=== PATIENT | female | born 1985 | race African-American/Black ===

== ENCOUNTER 2017-11-08 15:35 | Emergency (ER) | payer OTHER ==
[~2017-11-08] VITALS: Ht 177.8 cm; Wt 100.0 kg
[2017-11-08 15:40] VITALS: BP 148/87; PULSE 106; RESP 16; TEMP 98.1; O2SAT 99
[2017-11-08] MEDS ORDERED: LISI10TA3 PO (18:35)
[2017-11-08] MEDS ORDERED: TRAM50TA PO (18:35)
[2017-11-08] MEDS ORDERED: LANTUS2P SQ (18:35)
[2017-11-08] MEDS ORDERED: GLYB5TAB3 PO (18:35)
[2017-11-08] MEDS ORDERED: NAPR250T4 PO (18:35)
--- NOTE | 2017-11-08 18:42 | PD ---
HPI Chief Complaint: Sonar Technician Problem/Complaint Time Seen by Provider: 17:45 Travel History International Travel<30 days: No Contact w/Intl Traveler<30days: No Traveled to known affect area: No History of Present Illness HPI 32-year-old female presents to the emergency department with complaint of vaginal bleeding that started 13 days ago. At first she started out going through 4-5 pads a day and now she only has blood on the tissue when she wipes. Is complaining of right lower quadrant abdominal pain, but does not have pain at this time. Her last menstrual period started October 11 and ended October 15. She has never had symptoms like this in the past. Reports history of tubal ligation and denies . Denies nausea, vomiting, fever. Denies abnormal vaginal discharge, other than the bleeding, vaginal odor. Denies dysuria. Denies chest pain, shortness of breath. Denies lightheadedness, dizziness. Said that she did have an episode of dizziness yesterday when she stood up from a squatting position. She has not taken any medications or trying treatments to alleviate her symptoms. No known aggravating or relieving factors. Symptoms are mild to moderate in severity. Primary CARE providers in [place]. Allergies to doxycycline. History of IDDM. Denies history of abdominal surgeries, other than 3 sections. has no other medical complaints. No other modifying factors or associated signs and symptoms. PFSH Past Medical History Diabetes: Yes Patient Takes Glucophage: No Diminished Hearing: No Tetanus Vaccination: > 5 Years Influenza Vaccination: No ?: Not LMP: 10/11/17 : 3 Para: 3 Miscarriage: 0 : 0 Tubal Ligation: Yes Past Surgical History Section: Yes (X3) Social History Alcohol Use: No Tobacco Use: No Substance Use: No Allergies-Medications (Allergen,Severity, Reaction): Coded Allergies: doxycycline (Verified Allergy, Severe, Anaphylaxis, 11/08/17) Reported Meds & Prescriptions Reported Meds & Active Scripts Active Flagyl (Metronidazole) 500 Mg Tab 500 Mg PO BID 7 Days Reported Naproxen 250 Mg Tab 250 Mg PO BID Lantus Inj (Insulin Glargine) 1,000 Unit/10 Ml Vial 50 Units SQ DAILY Glyburide 5 Mg Tab 5 Mg PO DAILY Take with meals at the same time each day Lisinopril 10 Mg Tab 10 Mg PO DAILY Tramadol (Tramadol HCl) 50 Mg Tab 50 Mg PO Q6H PRN Review of Systems Except as stated in HPI: all other systems reviewed are Neg Physical Exam Narrative GENERAL: Well-nourished, well-developed black female patient, in no acute distress; afebrile SKIN: Warm and dry. HEAD: Atraumatic. Normocephalic. EYES: Pupils equal and round. No scleral icterus. No injection or drainage. ENT: Mucosa pink and moist. Airway patent. NECK: Trachea midline. CARDIOVASCULAR: Regular rate and rhythm. No murmur appreciated. RESPIRATORY: No accessory muscle use. Clear to auscultation. Breath sounds equal bilaterally. GASTROINTESTINAL: Abdomen soft, tenderness on palpation to right lower, nondistended. Hepatic and splenic margins not palpable. Bowel sounds are active 4 quadrants. Nonrigid. No guarding. BACK: No CVA tenderness. MUSCULOSKELETAL: No obvious deformities. No clubbing. No cyanosis. No edema. NEUROLOGICAL: Awake and alert. Oriented 3. No obvious cranial nerve deficits. Motor grossly within normal limits. Normal speech. PSYCHIATRIC: Appropriate mood and affect; insight and judgment normal. Data Data Last Documented VS Vital Signs Date Time Temp Pulse Resp B/P (MAP) Pulse Ox O2 Delivery O2 Flow Rate FiO2 11/08/17 15:40 98.1 106 16 148/87 (107) 99 Orders Orders Complete Blood Count With Diff (11/08/17 17:46) Prothrombin Time / Inr (Pt) (11/08/17 17:46) Act Partial Throm Time (Ptt) (11/08/17 17:46) Urinalysis - C+S If Indicated (11/08/17 17:46) Ed Urine Pregnancytest Poc (11/08/17 17:46) Comprehensive Metabolic Panel (11/08/17 18:19) Lipase (11/08/17 18:19) Gc And Chlamydia Pcr (11/08/17 18:57) Wet Prep Profile (11/08/17 18:57) Ed Discharge Order (11/08/17 20:17) Labs Laboratory Tests Test 11/08/17 18:20 11/08/17 19:30 White Blood Count 10.2 TH/MM3 Red Blood Count 4.82 MIL/MM3 Hemoglobin 14.1 GM/DL Hematocrit 41.8 % Mean Corpuscular Volume 86.8 FL Mean Corpuscular Hemoglobin 29.2 PG Mean Corpuscular Hemoglobin Concent 33.7 % Red Cell Distribution Width 13.7 % Platelet Count 260 TH/MM3 Mean Platelet Volume 10.3 FL Neutrophils (%) (Auto) 51.1 % Lymphocytes (%) (Auto) 36.0 % Monocytes (%) (Auto) 8.8 % Eosinophils (%) (Auto) 3.7 % Basophils (%) (Auto) 0.4 % Neutrophils # (Auto) 5.2 TH/MM3 Lymphocytes # (Auto) 3.7 TH/MM3 Monocytes # (Auto) 0.9 TH/MM3 Eosinophils # (Auto) 0.4 TH/MM3 Basophils # (Auto) 0.0 TH/MM3 CBC Comment DIFF FINAL Differential Comment Prothrombin Time 10.0 SEC Prothromb Time International Ratio 1.0 RATIO Activated Partial Thromboplast Time 27.5 SEC Urine Color YELLOW Urine Turbidity HAZY Urine pH 5.0 Urine Specific [place] 1.028 Urine Protein 30 mg/dL Urine Glucose (UA) 150 mg/dL Urine Ketones 20 mg/dL Urine Occult Blood LARGE Urine Nitrite NEG Urine Bilirubin NEG Urine Urobilinogen 2.0 mg/dL Urine Leukocyte Esterase NEG Urine RBC LESS THAN 1 /hpf Urine WBC 2 /hpf Urine Squamous Epithelial Cells 7 /hpf Urine Bacteria RARE /hpf Urine Mucus FEW /lpf Microscopic Urinalysis Comment CULT NOT INDICATED Blood Urea Nitrogen 10 MG/DL Creatinine 0.76 MG/DL Random Glucose 238 MG/DL Total Protein 8.9 GM/DL Albumin 4.2 GM/DL Calcium Level 9.1 MG/DL Alkaline Phosphatase 65 U/L Aspartate Amino Transf (AST/SGOT) 10 U/L Alanine Aminotransferase (ALT/SGPT) 18 U/L Total Bilirubin 0.4 MG/DL Sodium Level 135 MEQ/L Potassium Level 3.4 MEQ/L Chloride Level 99 MEQ/L Carbon Dioxide Level 28.0 MEQ/L Anion Gap 8 MEQ/L Estimat Glomerular Filtration Rate 105 ML/MIN Lipase 133 U/L Clue Cells (Wet Prep) PRESENT Vaginal Trichomonas (Wet Prep) NONE SEEN Vaginal Yeast (Wet Prep) NONE SEEN Chlamydia trachomatis DNA (PCR) NOT DETECTED Neisseria gonorrhoeae DNA (PCR) NOT DETECTED MDM Medical Decision Making Medical Screen Exam Complete: Yes Emergency Medical Condition: Yes Medical Record Reviewed: Yes Differential Diagnosis Dysmenorrhea, menorrhagia, vaginal bleeding Narrative Course 32-year-old female with vaginal bleeding 13 days. Also complaining of right lower quadrant abdominal pain and denies pain at this time until palpated on exam. CBC, CMP, lipase, urinalysis, UPT ordered. 1857: I discussed the patient with Dr. Easley and continue plan of care discussed. Wet prep, chlamydia, gonorrhea ordered. 1899: Report given to Salvatore Gu PA-C at change of shift. See his note for final patient disposition. Scripts Metronidazole (Flagyl) 500 Mg Tab 500 MG PO BID for Infection for 7 Days, #14 TAB 0 Refills Prov: Bandar Easley MD 11/08/17 Eri Amador Nov 08, 2017 18:42
[2017-11-08 18:49] LABS: AUTOMATED NEUTROPHIL # 5.2 TH/MM3 (1.8-7.7); BASOPHIL % 0.4 % (0.0-2.0); EOSINOPHIL # 0.4 TH/MM3 (0-0.4); EOSINOPHIL % 3.7 % (0.0-4.0); HEMATOCRIT 41.8 % (35.0-46.0); HEMOGLOBIN 14.1 GM/DL (11.6-15.3); LYMPHOCYTE # 3.7 TH/MM3 (1.0-4.8); MEAN CELL VOLUME 86.8 FL (80.0-100.0); MEAN CORPUSCULAR HEMOGLOBIN 29.2 PG (27.0-34.0); MEAN CORPUSCULAR HGB CONC 33.7 % (32.0-36.0); MEAN PLATELET VOLUME 10.3 FL (7.0-11.0); MONO % 8.8 % (0.0-8.0); MONOCYTE # 0.9 TH/MM3 (0-0.9); NEUT % 51.1 % (16.0-70.0); PLATELET COUNT 260 TH/MM3 (150-450); RED BLOOD COUNT 4.82 MIL/MM3 (4.00-5.30); RED CELL DISTRIBUTION WIDTH 13.7 % (11.6-17.2); WHITE BLOOD COUNT 10.2 TH/MM3 (4.0-11.0)
[2017-11-08 19:12] LABS: BACTERIA, URINE RARE /hpf; BILIRUBIN, URINE NEG (NEG); BLOOD, URINE LARGE (NEG); GLUCOSE,URINE 150 mg/dL (NEG); KETONE, URINE 20 mg/dL (NEG); MUCUS URINE FEW /lpf (OCC); NITRITE,URINE NEG (NEG); SQUAMOUS EPITHELIAL CELL URINE 7 /hpf (0-5); URINE COLOR YELLOW (YELLW/STRAW); URINE LEUKOCYTE ESTERASE NEG (NEG)
[2017-11-08 19:13] LABS: ALBUMIN 4.2 GM/DL (3.4-5.0); ALT (GPT) 18 U/L (10-53); AST (GOT) 10 U/L (15-37); BLOOD UREA NITROGEN 10 MG/DL (7-18); CALCIUM 9.1 MG/DL (8.5-10.1); CHLORIDE 99 MEQ/L (98-107); CREATININE 0.76 MG/DL (0.50-1.00); GLOMERULAR FILTRATION RATE 105 ML/MIN (>89); GLUCOSE,RANDOM 238 MG/DL (74-106); SODIUM (NA) 135 MEQ/L (136-145)
[2017-11-08 19:14] LABS: ALKALINE PHOSPHATASE 65 U/L (45-117); TOTAL BILIRUBIN ADULT 0.4 MG/DL (0.2-1.0); TOTAL PROTEIN 8.9 GM/DL (6.4-8.2)
--- NOTE | 2017-11-08 19:25 | PD ---
Data Data Last Documented VS Vital Signs Date Time Temp Pulse Resp B/P (MAP) Pulse Ox O2 Delivery O2 Flow Rate FiO2 11/08/17 15:40 98.1 106 16 148/87 (107) 99 Orders Orders Complete Blood Count With Diff (11/08/17 17:46) Prothrombin Time / Inr (Pt) (11/08/17 17:46) Act Partial Throm Time (Ptt) (11/08/17 17:46) Urinalysis - C+S If Indicated (11/08/17 17:46) Ed Urine Pregnancytest Poc (11/08/17 17:46) Comprehensive Metabolic Panel (11/08/17 18:19) Lipase (11/08/17 18:19) Gc And Chlamydia Pcr (11/08/17 18:57) Wet Prep Profile (11/08/17 18:57) Labs Laboratory Tests Test 11/08/17 18:20 11/08/17 19:30 White Blood Count 10.2 TH/MM3 Red Blood Count 4.82 MIL/MM3 Hemoglobin 14.1 GM/DL Hematocrit 41.8 % Mean Corpuscular Volume 86.8 FL Mean Corpuscular Hemoglobin 29.2 PG Mean Corpuscular Hemoglobin Concent 33.7 % Red Cell Distribution Width 13.7 % Platelet Count 260 TH/MM3 Mean Platelet Volume 10.3 FL Neutrophils (%) (Auto) 51.1 % Lymphocytes (%) (Auto) 36.0 % Monocytes (%) (Auto) 8.8 % Eosinophils (%) (Auto) 3.7 % Basophils (%) (Auto) 0.4 % Neutrophils # (Auto) 5.2 TH/MM3 Lymphocytes # (Auto) 3.7 TH/MM3 Monocytes # (Auto) 0.9 TH/MM3 Eosinophils # (Auto) 0.4 TH/MM3 Basophils # (Auto) 0.0 TH/MM3 CBC Comment DIFF FINAL Differential Comment Prothrombin Time 10.0 SEC Prothromb Time International Ratio 1.0 RATIO Activated Partial Thromboplast Time 27.5 SEC Urine Color YELLOW Urine Turbidity HAZY Urine pH 5.0 Urine Specific [place] 1.028 Urine Protein 30 mg/dL Urine Glucose (UA) 150 mg/dL Urine Ketones 20 mg/dL Urine Occult Blood LARGE Urine Nitrite NEG Urine Bilirubin NEG Urine Urobilinogen 2.0 mg/dL Urine Leukocyte Esterase NEG Urine RBC LESS THAN 1 /hpf Urine WBC 2 /hpf Urine Squamous Epithelial Cells 7 /hpf Urine Bacteria RARE /hpf Urine Mucus FEW /lpf Microscopic Urinalysis Comment CULT NOT INDICATED Blood Urea Nitrogen 10 MG/DL Creatinine 0.76 MG/DL Random Glucose 238 MG/DL Total Protein 8.9 GM/DL Albumin 4.2 GM/DL Calcium Level 9.1 MG/DL Alkaline Phosphatase 65 U/L Aspartate Amino Transf (AST/SGOT) 10 U/L Alanine Aminotransferase (ALT/SGPT) 18 U/L Total Bilirubin 0.4 MG/DL Sodium Level 135 MEQ/L Potassium Level 3.4 MEQ/L Chloride Level 99 MEQ/L Carbon Dioxide Level 28.0 MEQ/L Anion Gap 8 MEQ/L Estimat Glomerular Filtration Rate 105 ML/MIN Lipase 133 U/L Clue Cells (Wet Prep) PRESENT Vaginal Trichomonas (Wet Prep) NONE SEEN Vaginal Yeast (Wet Prep) NONE SEEN MDM Medical Record Reviewed: No Supervised Visit with MARCO: No Narrative Course Please see previous providers notes for complete history of present illness. I seemed care of this patient pending pelvic examination lab work. Briefly this is a 32-year-old female who has been experiencing vaginal bleeding intermittently for 13 days. Initially more heavy but now light. Occasional right lower quadrant pain but none currently. CBC is unremarkable. Urinalysis reveals 30 protein, 150 glucose, large blood otherwise unremarkable. Pelvic examination in the presence of a female nurse: There is some clotted blood noted in the vaginal canal. There is no cervical motion tenderness. There is mild right adnexal tenderness. Wet prep is positive for clue cells. Discharged with Flagyl. Recommended follow-up with an PROOF CARRIER for further outpatient workup of abnormal uterine bleeding. Diagnosis Primary Impression: Abnormal uterine bleeding Additional Impression: Bacterial vaginosis Referrals: Forklift Material Handler Additional Instruction: Medication as prescribed. Follow-up with a financial retirement plan specialist. Return for any emergent medical conditions. Med/Other Pt SpecificInfo: Prescription(s) given Scripts Metronidazole (Flagyl) 500 Mg Tab 500 MG PO BID for Infection for 7 Days, #14 TAB 0 Refills Prov: Bandar Easley MD 11/08/17 Disposition: 01 DISCHARGE HOME Condition: Stable Salvatore Gu Nov 08, 2017 19:25
[2017-11-08] MEDS ORDERED: METR-1 PO (20:13)
== END 2017-11-08 20:28 | disposition home or self-care (01) ==
LOC: NEPD 15:35
DX: N93.9 Abnormal uterine and vaginal bleeding, unspecified (principal); N76.0 Acute vaginitis; R10.31 Right lower quadrant pain; E11.9 Type 2 diabetes mellitus without complications; Z98.51 Tubal ligation status; Z79.4 Long term (current) use of insulin
CPT/HCPCS: 80053; 81001; 83690; 84703; 85025; 85610; 85730; 87210; 87491; 87591; 99284